=== PATIENT | male | born 1950 | race Caucasian/White ===

== ENCOUNTER 2017-04-15 09:27 | Inpatient (IN) | payer MEDICARE, OTHER ==
[~2017-04-15] VITALS: Ht 188 cm; Wt 111.6 kg
--- NOTE | ~2017-04-15 | PROC ---
[facility] [address] [place] [address] PROCEDURE REPORT Name: PORTIA GARG Room: [address] IN .R.#: [id number] Admission: 04/15/17 Attend Phys: Sharonda Sood Discharge: Date of : 54 Report #: [id number] THIS REPORT FOR: //name// For GI report, please see the Provation report in Perceptive 7 content. By: [facility] Records Staff KASANDRA /SUSAN
[~2017-04-15 09:27] MED LIST: ASPIR 8181 MG PO; CARDIZEM CD180 MG PO; CENTRUM SILVER1 EAC2 PO; KLOR-CON 1010 MEQ PO; LISINOPRIL-HCT1 EAC2 PO; LOPRESSOR25 PO; NORVASC5 MG PO; PACERONE 200 M200 M1 PO; XARELTO10 MG PO
[2017-04-15 09:35] VITALS: BP 142/58
[2017-04-15] MEDS ORDERED: CARVEDILOL6.25 MG (09:40)
[2017-04-15 10:07] LABS: MCH 24.1 pg (26.0-34.0); MCHC 30.8 g/dL (28.0-37.0); MPV 8.6 fl. (7.2-11.1); NUCLEATED RBCS 0 /100WBC; PLATELET COUNT* 72 thou/uL (150-400); RBC 1.99 mil/uL (4.50-6.00)
[2017-04-15 10:16] LABS: ANION GAP 9 mmol/L (7-16); APTT 33.6 Seconds (25.0-31.3); BUN 12 mg/dL (7-18); CALCIUM 8.1 mg/dL (8.5-10.1); CHLORIDE 105 mmol/L (98-107); CO2 25 mmol/L (21-32); CREATININE 0.9 mg/dL (0.6-1.3); GLUCOSE 123 mg/dL (70-99); INR 1.5; POTASSIUM 3.4 mmol/L (3.5-5.1); SODIUM 139 mmol/L (136-145)
[2017-04-15 10:19] LABS: HEMOGLOBIN 4.8 gm/dL (14.0-18.0); WBC 1.7 thou/uL (4.0-11.0)
[2017-04-15 10:20] LABS: HEMATOCRIT 15.5 % (42.0-52.0)
[2017-04-15 10:26] LABS: ALBUMIN 2.4 g/dL (3.4-5.0); ALKALINE PHOSPHATASE 107 U/L (46-116); NT-PRO BRAIN NAT PEPTIDE 95 pg/mL (<300); SGOT 64 U/L (15-37); SGPT 46 U/L (30-65); TOTAL BILIRUBIN 1.3 mg/dL (<0.1-1.0); TOTAL PROTEIN 6.8 g/dL (6.4-8.2); TROPONIN-I LEVEL <0.06 ng/mL (<0.06)
[2017-04-15 11:08] LABS: ABSOLUTE BASOPHILS 0.1 thou/uL (0.0-0.2); ABSOLUTE EOSINOPHILS 0.1 thou/uL (0.0-0.7); ABSOLUTE LYMPHOCYTES 0.4 thou/uL (0.8-5.3); ABSOLUTE MONOCYTES 0.2 thou/uL (0.0-1.2); ANISOCYTOSIS 2+; ATYPICAL LYMPHS 8 %; HYPOCHROMASIA 2+; MICROCYTES 2+; OVALOCYTES 1+; POIKILOCYTOSIS 1+; POLYCHROMASIA 1+
[2017-04-15 11:09] LABS: PLATELET ESTIMATE DECREASED; TEARDROPS 1+
[2017-04-15 12:25] VITALS: BP 108/56
[2017-04-15 12:30] VITALS: BP 128/82
--- NOTE | 2017-04-15 13:00 | NUR ---
ER ADMIT TO ROOM 232 VIA CART. ADMISSION ASSESSMENT COMPLETE, DEFER TO COMPUTER CHARTING. JUVENILE DETENTION OFFICER PLACED TRACKING SR. ALERT ORIENTED, DENIES PAIN, DIZZINESS OR ANY DISCOMFORT. ROOM AIR, LUNGS CLEAR. 2+ EDEMA IN LOWER EXTREMITIES. EDUCATED ON BLOOD PRODUCTS, ORDER FOR TRANSFUSION AND CONSENT - CONSENT SIGNED AND PLACED ON FRONT OF CHART. ORIENTED TO ROOM/CALL LIGHT AND PLAN OF CARE, VERBALIZED UNDERSTANDING. WILL MONITOR.
[2017-04-15 14:25] VITALS: BP 120/70; BP 123/71; BP 140/72; BP 145/76
[2017-04-15 17:00] VITALS: BP 123/71; BP 126/73; BP 129/72; BP 133/73; BP 134/80; BP 148/84
--- NOTE | 2017-04-15 18:36 | NUR ---
HOT WATER HEATER INSTALLER TRACKING WITH NO CHANGE IN RHYTHM. IV INFUSING, 2ND UNIT OF PRBC INFUSING. CONTINUES TO DENY PAIN, NAUSEA OR ANY DISCOMFORT. FAMILY AT BEDSIDE VISITING. CALL LIGHT WITHIN REACH. WILL MONITOR.
[2017-04-15 20:00] VITALS: BP 126/73
[2017-04-15 23:24] LABS: MCH 25.5 pg (26.0-34.0); MCHC 32.2 g/dL (28.0-37.0); MCV 79.1 fL (80.0-100.0); MPV 8.5 fl. (7.2-11.1); RBC 2.33 mil/uL (4.50-6.00); RDW-CV 17.5 % (10.5-14.5); WBC 2.6 thou/uL (4.0-11.0)
[2017-04-15 23:25] LABS: HEMATOCRIT 18.5 % (42.0-52.0)
[2017-04-15 23:27] LABS: HEMOGLOBIN 5.9 gm/dL (14.0-18.0)
[2017-04-16] VITALS (12 sets, daily range): BP systolic 124–143; BP diastolic 63–87
--- NOTE | 2017-04-16 03:26 | NUR ---
PT ALERT ORIENTED. 2 UNIT PRBC INFUSING AT SHIFT CHG. CBC ORDERED AT 2330. H&H 5.9/18.5. DR ARIZA NOTIFIED. ORDERS RECIEVED FOR TWO UNITS PRBC. 3RD UNIT INFUSING NOW. OCTREOTIDE INFUSING AT 50MLD/HR. TELEMETRY SHOWS SR. VSS. WILLL CONTINUE TO MONITOR.
[2017-04-16 05:36] LABS: ABSOLUTE EOSINOPHILS 0.1 thou/uL (0.0-0.7); ABSOLUTE LYMPHOCYTES 0.4 thou/uL (0.8-5.3); ABSOLUTE MONOCYTES 0.4 thou/uL (0.0-1.2); ABSOLUTE NEUTROPHILS 1.7 thou/uL (1.6-8.1); BASOPHILS 0.8 %; EOSINOPHILS 4.3 %; HEMATOCRIT 20.5 % (42.0-52.0); LYMPHOCYTES 16.1 %; MCH 25.6 pg (26.0-34.0); MCHC 32.4 g/dL (28.0-37.0); MCV 79.1 fL (80.0-100.0); MONOCYTES 14.1 %; MPV 9.3 fl. (7.2-11.1); NUCLEATED RBCS 0 /100WBC; PLATELET COUNT* 75 thou/uL (150-400); POLYS 64.7 %; RDW-CV 17.3 % (10.5-14.5); WBC 2.6 thou/uL (4.0-11.0)
[2017-04-16 05:39] LABS: INR 1.4; PROTIME 13.7 Seconds (9.20-11.50)
[2017-04-16 06:04] LABS: CALCIUM 8.1 mg/dL (8.5-10.1)
[2017-04-16 06:16] LABS: HEMOGLOBIN 6.7 gm/dL (14.0-18.0)
[2017-04-16 09:37] LABS: HEMATOCRIT 21.4 % (42.0-52.0); HEMOGLOBIN 7.1 gm/dL (14.0-18.0)
--- NOTE | 2017-04-16 10:13 | NUR ---
ASSUMED CARE OF PT THIS AM AROUND 0715- CARDAIC MONITOR IN PLACE ORDERED, TRACING SR- UPON ASSESSMENT PT NOTED TO BE RESTING IN BED- PT A&O X4- CONTINENT OF BOWEL AND BLADDER- SBA WITH TRANSFERS- LCTA, DIMISHED IN BASES- VSS, O2 SAT 92% ON RA-ABDOMEN SOFT/ROUND/NON-TENDER, BS X4 QUADS- REPORTS BM OVERNIGHT- 2-3+ BLE EDEMA, NON-PITTING- BLOOD COMPLETED THIS AM AROUND 0830- H&H POST INFUSION NOTED TO BE 7.1- NOTIFIED OF EDEMA, CURRENT H&H, ADN IVF INFUSING WITH NOTED EDEMA- ORDERS RECIVED TO CANCEL ORDERED BLOOD FOR THIS AM, AND IVF D/C'D- IV NOTED TO LEFT AC INTACT AND SL AT THIS TIME- IV NOTED TO RIGHT AC INTACT WITH OCTREOTIDE INFUSING ORDERED- PT CURRENTLY NPO FOR SCHEDULED EGD THIS SHIFT- PT DENIES ANY C/O PAIN/DISCOMFORT AT THIS TIME- CALL LIGHT AND PERSONAL BELONGINGS WITH IN REACH- HOURLY ROUNDS IN PLACE R/T SAFETY/NEEDS- ALL NEEDS MET AT THIS TIME-[facility]
--- NOTE | 2017-04-16 11:48 | EKG ---
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 <ELECTRONICALLY SIGNED> By: Dano Son MD, FACC 04/16/17 1147 1005 1005 Dano Son MD, FAC /EPI
--- NOTE | 2017-04-16 18:44 | NUR ---
PT CURRENLTY RESTING IN BED, AT SIDE VISITING- CARDAIC MONITOR IN PLACE ORDERED, TRACING SR- IV TO LEFT AC INTACT AND SL, IV TO RIGHT AC INTACT WITH IV OCTREOTIDE INFUSING ORDERED- PT DOWN FOR EGD THIS SHIFT FROM ABOUT 1150 TO 1409- VS UPON RETURNING NOTED AT 98.0 18 143/63 63 91% ON RA- PT REPORTED TO HAVE HAD GRADE 3 ESOPHAGEAL VARICES WITH 7 BANDS PLACED OVER 4 DIFF VARICES- MILD PORTAL HTN NOTED AND MILD GAVE-CARDIO CONSULTED FOR RECOMMENDATIONS PER FOR COREG TO BE CHANGED FROM COREG TO PROPRANOLOL- NOTIFIED AND GAVE TO FOR OKAY TO SWITH TO PROPRANOLOL 50MG DAILY, RB AND VERIFIED WITH PHYSICIAN- 2 GRAM SODIUM DIET INTIATED- POOR PO INAKE NOTED- PT NOTED TO BE NAUSEAS WITH VOMITTING NOTED X2 THIS EVENING POST TRYING TO EAT X1 AND WITH MEDICATION ADMINISTRATION- ORDERS OBTAINED FOR ANTI-NAUSEA MEDICATION- ZOFRAN GIVEN AT 1700 POST FIRST EMESIS- PT NOTED TO BECOME NAUSEA WITH EMESIS X1 WITH FEELLINGS OF FEELING BLOATED, PRN PROMETHAZINE GIVEN AT 1737-PT CURRENLTY RESTING IN BED WITH EYES CLOSED- CALL LIGHT AND PERSONAL BELONGINGS WITH IN REACH- HOURLY ROUNDS IN PLACE R/T SAFETY/NEEDS- ALL NEEDS MET AT THIS TIME-[facility]
[2017-04-16 20:38] LABS: HEMATOCRIT 26.1 % (42.0-52.0); HEMOGLOBIN 8.5 gm/dL (14.0-18.0); MCH 26.4 pg (26.0-34.0); MCHC 32.5 g/dL (28.0-37.0); MCV 81.1 fL (80.0-100.0); MPV 8.7 fl. (7.2-11.1); NUCLEATED RBCS 0 /100WBC; PLATELET COUNT* 76 thou/uL (150-400); RBC 3.22 mil/uL (4.50-6.00); RDW-CV 17.2 % (10.5-14.5); WBC 5.9 thou/uL (4.0-11.0)
[2017-04-16 20:45] LABS: CALCIUM 8.2 mg/dL (8.5-10.1); POTASSIUM 3.8 mmol/L (3.5-5.1)
[2017-04-16 20:50] LABS: ALBUMIN 2.5 g/dL (3.4-5.0); TOTAL BILIRUBIN 3.4 mg/dL (<0.1-1.0); TOTAL PROTEIN 7.2 g/dL (6.4-8.2)
[2017-04-16 21:18] LABS: ABSOLUTE EOSINOPHILS 0.1 thou/uL (0.0-0.7); ABSOLUTE LYMPHOCYTES 0.3 thou/uL (0.8-5.3); ABSOLUTE MONOCYTES 0.5 thou/uL (0.0-1.2); ABSOLUTE NEUTROPHILS 5.1 thou/uL (1.6-8.1)
[2017-04-16 21:19] LABS: ANISOCYTOSIS 1+; PLATELET ESTIMATE DECREASED
[2017-04-16 21:20] LABS: POLYCHROMASIA 1+
--- NOTE | 2017-04-16 22:51 | NUR ---
at 1945 this nurse spoke to dr camargo about pts current condition, pt has nausea unresolved with antiemetics and pts abd is distended, labs ordered, at [address] lab results reported to dr camargo, this nurse instructed to continue to medicate pt for nausea/vomiting and order a clear liquid diet for this patient, pts updated via telephone on pts condition and this nurse's communication with physician
[2017-04-17] VITALS (7 sets, daily range): BP systolic 109–131; BP diastolic 58–77
[2017-04-17 04:43] LABS: ABSOLUTE LYMPHOCYTES 0.4 thou/uL (0.8-5.3); ABSOLUTE MONOCYTES 0.8 thou/uL (0.0-1.2); ABSOLUTE NEUTROPHILS 6.7 thou/uL (1.6-8.1); BASOPHILS 0.5 %; EOSINOPHILS 0.3 %; HEMATOCRIT 26.5 % (42.0-52.0); HEMOGLOBIN 8.8 gm/dL (14.0-18.0); LYMPHOCYTES 5.1 %; MCH 26.4 pg (26.0-34.0); MCHC 33.2 g/dL (28.0-37.0); MCV 79.5 fL (80.0-100.0); MONOCYTES 10.2 %; MPV 9.2 fl. (7.2-11.1); NUCLEATED RBCS 0 /100WBC; PLATELET COUNT* 91 thou/uL (150-400); POLYS 83.9 %; RBC 3.33 mil/uL (4.50-6.00); RDW-CV 17.5 % (10.5-14.5)
[2017-04-17 04:57] LABS: INR 1.4; PROTIME 13.4 Seconds (9.20-11.50)
[2017-04-17 05:25] LABS: ALBUMIN 2.4 g/dL (3.4-5.0); CREATININE 1.1 mg/dL (0.6-1.3); TOTAL BILIRUBIN 2.9 mg/dL (<0.1-1.0); TOTAL PROTEIN 6.6 g/dL (6.4-8.2)
--- NOTE | 2017-04-17 10:37 | NUR ---
VSS, ASSUMED CARE IN THE AM, ASSESSMENT PERFORMED AND CHARTED, FALL PRECAUTIONS IN PLACE AND CALL LIGHT IN REACH, PT IS A&O4 AND ON 2L NC, UP AD SAMUEL, TRACING SR ON THE MONITOR AMD DENIES ANY PAIN AT THIS TIME. PT ABDOMINE IS DISTENDED ROUND AND HARD, HE HAS BEEN FEELING NUASEA NUT STATES FEELING BETTER AT THIS TIME, PT GOAL IS TO SIT UP IN CHAIR AND WALK IN ROOM, WILL FOLLOW WITH PLAN OF CARE,
--- NOTE | 2017-04-17 15:30 | NUR ---
MET WITH PT TO DISCUSS HOME SITUATION/DC PLANNING. PT LIVES WITH . IS INDEPENDENT AND ACTIVE. USES NO EQUIPMENT OR HOME CARE. PT PLANS TO RETURN HOME AT DC. WILL FOLLOW
--- NOTE | 2017-04-17 18:49 | NUR ---
VSS, PT IS PROGRESSING TOWARDS GOAL, PT HAS HAS NO N/V AND ON TA AND UP AD SAMUEL, HE HAS PROGRESSED TO REGULAR DIET, PT IS TRACING SR ON THE MONITOR AND DENIES ANY PAIN, HOURLY ROUNDS COMPLETED,
--- NOTE | 2017-04-18 02:46 | NUR ---
PT ALERT ORIENTED. UP AD SAMUEL. BREATH SOUNDS CLEAR. ON RA. ABD DISTENDED. PT STATED HE HAD GAS. CLEAR SODA GIVEN. PRN SIMETHICONE ORDER OBTAINED BUT PT STATED THE POP WORKED. TELEMETRY SHOWS SR 50S. WILL CONTINUE TO MONITOR.
[2017-04-18 03:38] VITALS: BP 114/72
[2017-04-18 05:09] LABS: ABSOLUTE EOSINOPHILS 0.3 thou/uL (0.0-0.7); ABSOLUTE LYMPHOCYTES 1.1 thou/uL (0.8-5.3); ABSOLUTE MONOCYTES 0.8 thou/uL (0.0-1.2); ABSOLUTE NEUTROPHILS 2.6 thou/uL (1.6-8.1); BASOPHILS 0.8 %; EOSINOPHILS 5.4 %; HEMATOCRIT 25.1 % (42.0-52.0); LYMPHOCYTES 22.9 %; MCH 25.9 pg (26.0-34.0); MONOCYTES 16.9 %; MPV 8.8 fl. (7.2-11.1); NUCLEATED RBCS 0 /100WBC; PLATELET COUNT* 92 thou/uL (150-400); RBC 3.09 mil/uL (4.50-6.00); RDW-CV 17.9 % (10.5-14.5); WBC 4.9 thou/uL (4.0-11.0)
[2017-04-18 05:11] LABS: CREATININE 1.2 mg/dL (0.6-1.3); POTASSIUM 3.7 mmol/L (3.5-5.1)
[2017-04-18 08:00] VITALS: BP 134/78
--- NOTE | 2017-04-18 11:20 | NUR ---
ASSUMED CARE OF PT AT 0730. PT RESTING IN BED WAITING FOR BREAKFAST. PT A&0X4. DENIES ANY PAIN AT THIS TIME. PT TRACING SB ON THE REFUSE COLLECTOR. EDEMA NOTED TO BILATERAL ANKLES AND FEET. ON RA SAT 88%. PT PLACED ON 2L NC SAT UP TO 92-93%. PT DENIES ANY SHORTNESS OF BREATH. PT STATES HE HAD A LIQUID BOWEL MOVEMENT LAST NIGHT AFTER DINNER AND HAD SOME NAUSEA AFTER DINNER WELL. PT ABDOMEN NOTED TO BE DISTENDED AND HARD. PT UP AD SAMUEL IN ROOM. PT HGB NOTED TO DROP FROM 8.8 TO 8.0 TODAY. WILL MONITOR PT FOR STOOLS AND WILL ATTEMPT TO TITRATE PT OFF 02 THROUGHOUT SHIFT. AM ASSESSMENT CHARTED. MEDICATIONS PER MAY. PT REPOSITIONS SELF IN BED WITH REMINDERS. HOURLY ROUNDING OBSERVED. BED IN LOW POSITION. CALL LIGHT WITHIN REACH. WILL CONTINUE PLAN OF CARE.
[2017-04-18 12:13] VITALS: BP 109/73
[2017-04-18 17:01] VITALS: BP 137/78
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
--- NOTE | 2017-04-18 18:31 | NUR ---
NO ACUTE CHANGES THROUGHOUT SHIFT. REFER TO CHARTING. PLAN IS FOR DISCHARGE HOME TOMORROW IF HGB REMAINS STABLE AND DOESNT CONTINUE TO DROP. PT DENIES ANY STOOLS TODAY. PT ABLE TO TITRATE OFF OXYGEN AND IS CURRENTLY ON RA SAT 93%. DENIES ANY SHORTNESS OF BREATH. CONTINUES TO TRACE SB/SR ON THE SERVICE DELIVERY MANAGEMENT CONSULTANT. PT UP AD SAMUEL IN ROOM. VISITORS AT BEDSIDE THIS AFTERNOON. MEDICATIONS PER MAY. PT REPOSITIONS SELF. HOURLY ROUNDING OBSERVED. BED IN LOW POSITION. CALL LIGHT WITHIN REACH. WILL CONTINUE PLAN OF CARE.
[2017-04-18 20:00] VITALS: BP 120/69
[2017-04-19] VITALS: BP 110/69
--- NOTE | 2017-04-19 03:28 | NUR ---
PT ALERT ORIENTED. ABD DISTENDED. SPRITE AND SIMETICONE GIVEN. TELEMETRY SHOW SHOWS SR. DENIES PAIN. WILL CONTINUE TO MONITOR.
[2017-04-19 04:00] VITALS: BP 112/64
[2017-04-19 05:22] LABS: ABSOLUTE EOSINOPHILS 0.3 thou/uL (0.0-0.7); ABSOLUTE LYMPHOCYTES 0.8 thou/uL (0.8-5.3); ABSOLUTE MONOCYTES 0.6 thou/uL (0.0-1.2); ABSOLUTE NEUTROPHILS 2.1 thou/uL (1.6-8.1); BASOPHILS 0.6 %; EOSINOPHILS 6.6 %; HEMATOCRIT 22.7 % (42.0-52.0); HEMOGLOBIN 7.4 gm/dL (14.0-18.0); LYMPHOCYTES 21.8 %; MCH 26.5 pg (26.0-34.0); MCHC 32.7 g/dL (28.0-37.0); MCV 81.1 fL (80.0-100.0); MONOCYTES 16.4 %; MPV 8.8 fl. (7.2-11.1); NUCLEATED RBCS 0 /100WBC; PLATELET COUNT* 81 thou/uL (150-400); POLYS 54.6 %; RDW-CV 18.1 % (10.5-14.5); WBC 3.9 thou/uL (4.0-11.0)
--- NOTE | 2017-04-19 06:34 | NUR ---
AM H&H 7.4/22.7 DOWN FROM YESTERDAY 8.0/25.1 DR BUCKNER NOTIFIED VIA YOU CALL .
[2017-04-19 08:00] VITALS: BP 133/73
[2017-04-19 10:11] LABS: HCV QUANT BY PCR HCV Not Detected IU/mL (())
--- NOTE | 2017-04-19 11:38 | NUR ---
pt reports feeling better this am and has an appetite for first time in days. pt denies c/o. pt sitting up in bed, visitor at bedside. pt denies any needs.
[2017-04-19 12:00] VITALS: BP 119/74
[2017-04-19 15:16] LABS: HEMATOCRIT 26.2 % (42.0-52.0); HEMOGLOBIN 8.5 gm/dL (14.0-18.0)
[2017-04-19 16:00] VITALS: BP 122/75
--- NOTE | 2017-04-19 19:42 | NUR ---
PT DENIES C/O TODAY. PT TOLERATED DIET. NO S/S BLEEDING.
[2017-04-19 20:00] VITALS: BP 126/67
[2017-04-20] VITALS (7 sets, daily range): BP systolic 103–138; BP diastolic 59–78
--- NOTE | 2017-04-20 05:44 | NUR ---
ASSUMED CARE AROUND 1930. PT A/OX4 AND PLEASANT, RESTING SOME TONIGHT. TELE MONITOR TRACING SR/SB WITH 1D AVB. ON ROOM AIR. IV'S SALINE LOCKED. UP AD SAMUEL. PT REPORTS HAVING HEMORRHOIDS BUT NO OTHER PAIN. VSS. SEE CHARTING. NO CONCERNS VOICED. CALL LIGHT IN REACH, WILL CONTINUE WITH PLAN OF CARE.
[2017-04-20 06:36] LABS: HEMATOCRIT 23.1 % (42.0-52.0); HEMOGLOBIN 7.4 gm/dL (14.0-18.0); MCH 26.6 pg (26.0-34.0); MCHC 32.2 g/dL (28.0-37.0); MCV 82.5 fL (80.0-100.0); MPV 8.7 fl. (7.2-11.1); RBC 2.8 mil/uL (4.50-6.00); RDW-CV 18.2 % (10.5-14.5); WBC 2.9 thou/uL (4.0-11.0)
[2017-04-20 07:20] LABS: CALCIUM 7.6 mg/dL (8.5-10.1); POTASSIUM 3.2 mmol/L (3.5-5.1); TOTAL BILIRUBIN 1.8 mg/dL (<0.1-1.0); TOTAL PROTEIN 5.7 g/dL (6.4-8.2)
[2017-04-20] MEDS ORDERED: IRON325 PO ×2 (14:01→16:00)
[2017-04-20] MEDS ORDERED: PROTONIX40 M1 PO ×2 (14:02→16:00)
[2017-04-20] MEDS ORDERED: CARAFATE 1 GM TA1 G1 PO ×2 (14:03→16:00)
[2017-04-20] MEDS ORDERED: ALDACTONE50 MG PO (14:04)
[2017-04-20] MEDS ORDERED: PROPRANOLOL 1010 MG PO (14:05)
[2017-04-20] MEDS ORDERED: LASIX 40 MG TAB40 M2 PO ×2 (14:06→16:00)
[2017-04-20] MEDS ORDERED: XIFAXAN550 M1 PO (16:00)
[2017-04-20] MEDS ORDERED: INDERAL 20 MG T20 M1 PO (16:00)
[2017-04-20] MEDS ORDERED: ALDACTONE25 MG PO (16:00)
--- NOTE | 2017-04-20 17:47 | NUR ---
pt has no c/o today.
--- NOTE | 2017-04-20 20:00 | NUR ---
RECEIVED REPORT AND ASSUMED CARE OF PT, ASSESSMENT COMPLETED. PT DENIES LIGHTHEADNESS OR DIZZINESS. INDEPENDENT BRP WITH STEADY GAIT. PT STATES HAD BM EARLIER TODAY WITH BRIGHT RED BLEEDING DUE TO HEMORRHOIDS. TELEMETRY ON SHOWING SR. WILL CONT TO MONITOR AND ASSIST NEEDED.
[2017-04-21 00:02] VITALS: BP 102/48
[2017-04-21 04:00] VITALS: BP 126/74
--- NOTE | 2017-04-21 06:06 | NUR ---
SLEPT WELL TONIGHT. NO COMPLAINTS VOICED. ASSESSMENT UNCHANGED. TELEMETRY CONT TO SHOW SR. ADVANCING TOWARDS DISCHARGE GOAL. HOURLY ROUNDING OBSERVED.
[2017-04-21 07:30] VITALS: BP 119/73
--- NOTE | 2017-04-21 12:29 | NUR ---
CONTINUE TO FOLLOW. MET WITH PT AND . PT HOPEFUL TO GO HOME AND DENIES NEEDS
[2017-04-21 12:30] VITALS: BP 128/75
[2017-04-21 12:44] LABS: HEMATOCRIT 25.4 % (42.0-52.0); HEMOGLOBIN 8.2 gm/dL (14.0-18.0); MCH 26.7 pg (26.0-34.0); MCHC 32.4 g/dL (28.0-37.0); MCV 82.6 fL (80.0-100.0); MPV 8.4 fl. (7.2-11.1); RBC 3.07 mil/uL (4.50-6.00); RDW-CV 19.6 % (10.5-14.5); WBC 3.2 thou/uL (4.0-11.0)
[2017-04-21 12:49] LABS: CALCIUM 7.9 mg/dL (8.5-10.1); POTASSIUM 3.9 mmol/L (3.5-5.1)
[2017-04-21 12:54] LABS: ALBUMIN 2.2 g/dL (3.4-5.0); TOTAL BILIRUBIN 1.6 mg/dL (<0.1-1.0); TOTAL PROTEIN 6.3 g/dL (6.4-8.2)
--- NOTE | 2017-04-21 13:47 | NUR ---
RECEIVED PT CARE 0700. PT IS ALERT AND ORIENTED X4. VSS. SALESPERSON MEN'S AND BOYS' CLOTHING TRACING SR. PATIENT DENIES PAIN. NO SOA. O2 SAT 94% ON ROOM AIR. UP AD SAMUEL IN ROOM. GAIT IS STEADY. AM ASSESSMENT CHARTED. MEDS PER MAR. PLANNING FOR DC TO HOME TODAY. LAB WORK IMPROVING. WILL CONTINUE PLAN OF CARE.
[2017-04-21] MEDS ORDERED: CARVEDILOL6.25 MG (15:01)
[2017-04-21] MEDS ORDERED: CENTRUM SILVER1 EAC2 PO (15:02)
[2017-04-21] MEDS ORDERED: PROTONIX40 M1 PO (15:07)
[2017-04-21] MEDS ORDERED: CARAFATE 1 GM TA1 G1 PO (15:17)
[2017-04-21] MEDS ORDERED: XIFAXAN550 M1 PO (15:19)
--- NOTE | 2017-04-21 16:43 | NUR ---
RECEIVED DISCHARGE ORDERS PER DR ARIZA. IV DISCONTINUED. RESIDENT IN DIAGNOSTIC RADIOLOGY REMOVED AND RETURNE TO NURSE'S DESK. NOTED SOME CONCERNS WITH THE CHECK MARKED DISCHARGE MEDICATIONS TO CONTINUE AFTER DISCHARGE AND THE PATIENTS PREVIOUS HOME MEDICATIONS. NOTIFIED CARDIOLOGY AND SPOKE WITH CARDIOLOGY NURSE CASSI. AFTER REVIEWING DR CABRAL'S PROGRESS NOTE PER CASSI IT WAS DECEIFERED THE PATIENT NEEDED TO STOP AMIODARONE DUE TO HIS LIVER CIRRHOSIS, STOP CARVEDILOL, AND STOP XARELTO. PATIENT WAS TO TAKE PROPRANOLOL AFTER DC AND WAS GIVEN A SCRIPT AT DISCHARGE. ADDITIONAL MEDICATION SCRIPTS GIVEN AND MEDICATION INFORMATION SHEETS. EDUCATED ON F/U WITH HIS PRIMARY, F/U WITH GI, AND F/U WITH AN ALREADY SCHEDULED GI APPT WITH DR BENJAMIN. PATIENT WAS ALSO VERBALLY INSTRUCTED TO F/U WITH CARDIOLOGY WELL. PATIENT WAS OFFERED HOME HEALTH AND PT/OT AFTER DISCHARGE BUT PATIENT REFUSED AND STATED HE WAS SELF SUFFICIENT AT HOME. HE DENIED ANY NEEDS/CONCERNS OR ANY QUESTIONS AT DISCHARGE. ALL BELONGINGS PACKED AND LEAVING WITH PATIENT. LEAVING VIA WHEELCHAIR ACCOMPANIED BY NURSING STAFF AND PATIENTS SPOUSE.
--- NOTE | 2017-05-08 17:57 | CON ---
[address] [address] CONSULTATION Name: PORTIA GARG Room: [address] IN M.R.#: [id number] Admission: 04/15/17 Attend Phys: Sharonda Sood Discharge: 04/21/17 Date of : 54 Report #: [id number] THIS REPORT FOR: //name// CC: Ramone Burch DO DATE OF SERVICE: 04/15/2017 REFERRING PHYSICIAN: Lionel Burch DO REASON FOR CONSULTATION: Anemia. IMPRESSION: 1. Acute anemia with history of melena - evaluate upper gastrointestinal tract first due to a history of esophageal varices. 2. Decompensated liver disease secondary to hepatitis C, with associated ascites and peripheral edema and now possibly variceal bleeding. 3. Pancytopenia, likely related to portal hypertension. 4. Chronic atrial fibrillation, requiring chronic Xarelto. RECOMMENDATIONS: 1. We will begin the patient on octreotide drip as well as Protonix drip for suspected upper GI bleed. 2. We will proceed with upper endoscopy tomorrow to be done at 12:45 or so. 3. Continue to hold Xarelto for now. He may not be a candidate for any type of anticoagulation if he has significant portal hypertension and requires variceal banding. 4. We will hold off on endoscopy of his lower GI tract unless his upper endoscopy is unrevealing. 5. We will keep Dr. Singh in the loop with regards to the same to update with regards to this patient's care as the patient has an outpatient appointment to see him in the next month or so later this month. 6. We will check quantitative HCV RNA by PCR, alpha fetoprotein and abdominal ultrasound with Doppler since he has decompensated liver disease. I have discussed the plans with the patient as well his family and everyone is in agreement with the same. HISTORY OF PRESENT ILLNESS: The patient is a very pleasant 67-year-old white male with history of chronic hepatitis C infection, which was treated and cured by Dr. Singh. He is scheduled to see him sometime later this week, but have been having problems with rather severe fatigue and dark tarry stools. He has not been feeling good for quite some time. He [place] [address] CONSULTATION Name: PORTIA GARG Kirill Room: [address]#: [id number] Admission: 04/15/17 Attend Phys: Sharonda Sood Discharge: 04/21/17 Date of : 54 Report #: [id number] dizziness. He has no complaints of any dysphagia, odynophagia, chronic reflux or postprandial pain. He has had no problem with his bowels or bowel frequency other than being black and tarry. He is on chronic Xarelto for chronic atrial fibrillation. He is followed by Dr. Dalton for the same. He is admitted to hospital for further evaluation and treatment. ALLERGIES: None. MEDICATIONS: Include lisinopril/hydrochlorothiazide, aspirin, Xarelto, potassium, amiodarone, carvedilol and a multivitamin. PAST MEDICAL HISTORY: Remarkable for hypertension; chronic atrial fibrillation and history of hepatitis C with probable cirrhosis, for which he was treated for the same. SOCIAL HISTORY: The patient is . Does not smoke or drink. FAMILY HISTORY: Negative. PHYSICAL EXAMINATION: GENERAL: Reveals a pleasant 67-year-old gentleman who is awake and alert. CARDIOPULMONARY: Revealed a regular rate and rhythm. LUNGS: Clear. He is not tachycardic or ill appearing. ABDOMEN: Soft. It was mildly distended. No rebound or guarding noted. LABORATORY TEST: On admission revealed a white count of 1.7; hemoglobin 4.8 and platelet count of 72,000. His MCV is 78 and RDW is 18.0. His differential is normal. His protime 15.0 with an INR of 1.5 and a PTT of 30.6. Sodium 139, potassium 3.4, chloride 105 and bicarb is 25. BUN is 12 and creatinine 0.9. His GFR is 85. Total bilirubin 1.3. Alkaline phosphatase is 107, AST 64 and ALT 46. Albumin is 2.4. His ferritin is only 8. Stool is positive for blood. By comparison, the patient's blood count in 04/2016 revealed a white count 9.5; hemoglobin 17.2 and platelet count 135,000. Protime is 13.2 with an INR of 1.3 and a PTT of 30.4. His electrolytes were all within normal limits at that time with the BUN and creatinine of 17 and 1.1 respectively and GFR of 67. Total bilirubin at that time was 0.8. Alkaline phosphatase 97, AST 96 and ALT 164. DISCUSSION: At the present time, the patient has some black tarry stools secondary to associated anemia. We will proceed with upper endoscopy first and make further recommendations thereafter. I have discussed the plan with the [address] [address] CONSULTATION Name: PORTIA GARG Room: [address] IN .R.#: [id number] Admission: 04/15/17 Attend Phys: Sharonda Sood Discharge: 04/21/17 Date of : 54 Report #: [id number] patient as well as with his and family and everyone is in agreement with the same. <ELECTRONICALLY SIGNED> By: Moiz Mcdonald DO 05/08/17 1757 1634 [id number] Mcdonald DO /nt
== END 2017-04-21 16:50 | disposition home or self-care (01) | DRG 432 ==
LOC: M.ERS 09:27 → M.TBA-ER 10:34 → M.2W 10:34
PROVIDERS: Family Medicine; Internal Medicine Gastroenterology; Nurse Practitioner Adult Health; ADMIT Internal Medicine
PROC: 30233N1 Transfusion of Nonautologous Red Blood Cells into Peripheral Vein, Percutaneous Approach (ICD-10-PCS; 2017-04-15)
PROC: 06L38CZ Occlusion of Esophageal Vein with Extraluminal Device, Via Natural or Artificial Opening Endoscopic (ICD-10-PCS; principal; 2017-04-16)
DX: K74.60 Unspecified cirrhosis of liver (principal); I85.11 Secondary esophageal varices with bleeding; E43 Unspecified severe protein-calorie malnutrition; K31.811 Angiodysplasia of stomach and duodenum with bleeding; D61.818 Other pancytopenia; K76.6 Portal hypertension; R18.8 Other ascites; K72.90 Hepatic failure, unspecified without coma; I10 Essential (primary) hypertension; E87.6 Hypokalemia; I48.2 Chronic atrial fibrillation; E83.51 Hypocalcemia; K31.89 Other diseases of stomach and duodenum; K64.8 Other hemorrhoids; K64.4 Residual hemorrhoidal skin tags; Z86.19 Personal history of other infectious and parasitic diseases; Z82.49 Family history of ischemic heart disease and other diseases of the circulatory system; Z79.01 Long term (current) use of anticoagulants; Z79.82 Long term (current) use of aspirin; Z87.891 Personal history of nicotine dependence; Z68.31 Body mass index [BMI] 31.0-31.9, adult

== ENCOUNTER 2017-05-06 11:51 | Emergency (ER) | payer MEDICARE, OTHER ==
[~2017-05-06] VITALS: Ht 188 cm; Wt 91.6 kg
[~2017-05-06 11:51] MED LIST changes: +ALDACTONE25 MG PO; +ALDACTONE50 MG PO; +CARAFATE 1 GM TA1 G1 PO; +CARVEDILOL6.25 MG; +INDERAL 20 MG T20 M1 PO; +IRON325 PO; +LASIX 40 MG TAB40 M2 PO; +PROPRANOLOL 1010 MG PO; +PROTONIX40 M1 PO; +XIFAXAN550 M1 PO
[2017-05-06] MEDS ORDERED: XIFAXAN550 MG PO (12:05)
[2017-05-06 12:37] LABS: HEMATOCRIT 32.7 % (42.0-52.0); HEMOGLOBIN 10.5 gm/dL (14.0-18.0); MCH 27.2 pg (26.0-34.0); MCHC 32.2 g/dL (28.0-37.0); MCV 84.5 fL (80.0-100.0); MPV 9.3 fl. (7.2-11.1); NUCLEATED RBCS 0 /100WBC; PLATELET COUNT* 99 thou/uL (150-400); RBC 3.87 mil/uL (4.50-6.00); RDW-CV 25.2 % (10.5-14.5); WBC 6.7 thou/uL (4.0-11.0)
[2017-05-06 12:44] LABS: APTT 29.2 Seconds (25.0-31.3); INR 1.3; PROTIME 12.7 Seconds (9.20-11.50)
[2017-05-06 12:55] LABS: CALCIUM 10.1 mg/dL (8.5-10.1); CREATININE 1.2 mg/dL (0.6-1.3); POTASSIUM 4.7 mmol/L (3.5-5.1)
[2017-05-06 13:01] LABS: ABSOLUTE EOSINOPHILS 0.2 thou/uL (0.0-0.7); ABSOLUTE LYMPHOCYTES 0.6 thou/uL (0.8-5.3); ABSOLUTE MONOCYTES 0.3 thou/uL (0.0-1.2); ABSOLUTE NEUTROPHILS 5.6 thou/uL (1.6-8.1); HYPOCHROMASIA 1+; PLATELET ESTIMATE INCREASED
[2017-05-06 13:02] LABS: ANISOCYTOSIS 2+; OVALOCYTES 1+; POIKILOCYTOSIS 1+; POLYCHROMASIA 1+; TEARDROPS Occasional
[2017-05-06 13:04] LABS: ALBUMIN 2.9 g/dL (3.4-5.0); TOTAL BILIRUBIN 1.9 mg/dL (<0.1-1.0); TOTAL PROTEIN 8.4 g/dL (6.4-8.2)
[2017-05-06] MEDS ORDERED: ZOFRAN ODT4 MG SUBLING (13:32)
[2017-05-06 13:49] VITALS: BP 100/61
== END 2017-05-06 13:49 | disposition home or self-care (01) ==
LOC: M.ERS 11:51
PROVIDERS: Family Medicine
DX: R11.2 Nausea with vomiting, unspecified (principal); I10 Essential (primary) hypertension; I48.91 Unspecified atrial fibrillation; Z86.19 Personal history of other infectious and parasitic diseases

== ENCOUNTER 2018-12-14 21:26 | Emergency (ER) | payer MEDICARE, OTHER ==
[~2018-12-14] VITALS: Ht 188 cm; Wt 102.1 kg
[~2018-12-14 21:26] MED LIST changes: +XIFAXAN550 MG PO; +ZOFRAN ODT4 MG SUBLING
[2018-12-14] MEDS ORDERED: POTASSIUM (21:42)
[2018-12-14] MEDS ORDERED: NORCO 5-325 TA1 EAC1 PO (22:34)
[2018-12-14 23:04] VITALS: BP 117/71
== END 2018-12-14 23:07 | disposition home or self-care (01) ==
LOC: M.ERS 21:26
DX: S62.632A Displaced fracture of distal phalanx of right middle finger, initial encounter for closed fracture (principal); S61.312A Laceration without foreign body of right middle finger with damage to nail, initial encounter; I10 Essential (primary) hypertension; I48.91 Unspecified atrial fibrillation; W23.0XXA Caught, crushed, jammed, or pinched between moving objects, initial encounter; Y92.89 Other specified places as the place of occurrence of the external cause; Y93.75 Activity, martial arts; Y99.8 Other external cause status

== ENCOUNTER → 2019-12-26 | Day surgery (SDC) | payer MEDICARE, OTHER ==
[~2019-12-26] MED LIST changes: +BIOTIN10000 MC1 PO; +FIBERCON625 M1 PO; +NORCO 5-325 TA1 EAC1 PO; +ONE DAILY FOR1 EAC2 PO; +POTASSIUM GLUCONATE PO; +PROBIOTIC1 EAC6 PO
--- NOTE | ~2019-12-26 | PROC ---
[facility] [address] [place] [address] PROCEDURE REPORT Name: PORTIA GARG Room: [facility]#: [id number] Admission: 12/26/19 Attend Phys: Moiz Mcdonald DO Discharge: Date of : 54 Report #: [id number] THIS REPORT FOR: //name// cc: Werner Ribeiro Russell J. DO ~ THIS REPORT FOR: //name// For GI report, please see the Provation report in Perceptive 7 content. By: [id number] Records Staff LILA /SUSAN
[2019-12-26 10:29] LABS: HEMOGLOBIN 14.9 gm/dL (14.0-18.0); MCH 33.6 pg (26.0-34.0); MCHC 34.6 g/dL (28.0-37.0); MCV 97.1 fL (80.0-100.0); MPV 9.1 fl. (7.2-11.1); RBC 4.42 mil/uL (4.50-6.00); WBC 5.2 thou/uL (4.0-11.0)
[2019-12-26 10:39] LABS: CALCIUM 8.8 mg/dL (8.5-10.1); CREATININE 0.9 mg/dL (0.6-1.3)
[2019-12-26 10:42] LABS: INR 1.1; PROTIME 11.7 Seconds (9.20-11.50)
[2019-12-26 10:46] LABS: ALBUMIN 3.3 g/dL (3.4-5.0); TOTAL BILIRUBIN 1.6 mg/dL (<0.1-1.0); TOTAL PROTEIN 7.7 g/dL (6.4-8.2)
--- NOTE | 2019-12-30 12:06 | PATH ---
[facility] [address] [place] [address] PATHOLOGY RPT PROCEDURE Name: PORTIA MORENO Room: [facility].#: [id number] Admission: 12/26/19 Date of : 54 Discharge: Report #: [id number] Path Case #: [id number] [facility] Accession Number: [id number] . 01 Material submitted: . PART A: cecum - CECAL POLYP PART B: colon - PROXIMAL ASCENDING COLON POLYP. Modifiers: proximal, ascending PART C: colon - MID-ASCENDING COLON POLYP. Modifiers: mid, ascending PART D: rectum - RECTAL POLYPS X2 . 01 Clinical history: . SCREENING, PERSONAL HX OF POLYPS . 02 Diagnosis: A. Cecal polyp: - Tubular adenoma, negative for high-grade dysplasia. . B. Proximal ascending colon polyp: - Tubular adenoma, negative for high-grade dysplasia. . C. Mid ascending colon polyp: - Tubular adenoma, negative for high-grade dysplasia. . D. Rectal polyp x2: - Two hyperplastic polyps. . (SHERITA:andry; 12/30/2019) MBR 12/30/2019 1029 Local . 02 Electronically signed: . Edwin Tavarez MD, Pathologist NPI- [id number] . 01 Gross description: . A. The specimen is received in formalin, labeled "Portia Moreno, cecal polyp" and consists of 2 fragments of pink-torres tissue measuring 0.2 x 0.1 cm and 0.6 x 0.5 cm which are entirely submitted in A1. . B. The specimen is received in formalin, labeled "Portia Moreno, proximal ascending polyp" and consists of a fragment of torres tissue measuring 0.3 x 0.2 cm which is entirely submitted in B1. . C. The specimen is received in formalin, labeled "Portia Moreno, mid ascending colon polyp" and consists of a polypoid segment of torres-brown tissue measuring 0.7 x 0.7 x 0.5 cm. The margin is inked black. It is bisected and entirely submitted [place] [address] PATHOLOGY RPT PROCEDURE Name: PORTIA MORENO Kirill Room: [facility]#: [id number] Admission: 12/26/19 Date of : 54 Discharge: Report #: [id number] Path Case #: [id number] D. The specimen is received in formalin, labeled "Tiffanie, Portia, rectal polyp x2" and consists of 2 fragments of pink-torres tissue measuring 0.3 x 0.4 cm and 0.4 x 0.3 cm which are entirely submitted in D1. (SDY; 12/27/2019) SYU/SYU 12/27/2019 1402 Local . 02 Pathologist provided ICD-10: D12.0, D12.2, K62.1 . 02 CPT . 627047, 456081, 306368, 208069 Specimen Comment: A courtesy copy of this report has been sent to [phone] Specimen Comment: [id number] Specimen Comment: Report sent to / DR MURILLO Performed at: [address], [place] [id number] MD Werner Becker MD Phone: [phone] Performed at: 02 [facility] [address], [place], [place] [id number] MD Edwin Tavarez MD Phone: [phone]
== END | disposition home or self-care (01) ==
LOC: M.SUR 09:41
PROVIDERS: ATTEND Internal Medicine Gastroenterology
DX: Z12.11 Encounter for screening for malignant neoplasm of colon (principal); K64.4 Residual hemorrhoidal skin tags; D12.2 Benign neoplasm of ascending colon; D12.0 Benign neoplasm of cecum; K57.30 Diverticulosis of large intestine without perforation or abscess without bleeding; K63.89 Other specified diseases of intestine; K74.60 Unspecified cirrhosis of liver; I48.91 Unspecified atrial fibrillation; Z79.899 Other long term (current) drug therapy; Z98.890 Other specified postprocedural states

== ENCOUNTER 2020-03-31 05:51 | Emergency (ER) | payer MEDICARE, OTHER ==
[~2020-03-31] VITALS: Ht 188 cm; Wt 99.8 kg
[2020-03-31 06:07] LABS: ABSOLUTE EOSINOPHILS 0.3 thou/uL (0.0-0.7); ABSOLUTE LYMPHOCYTES 1.2 thou/uL (0.8-5.3); ABSOLUTE MONOCYTES 0.6 thou/uL (0.0-1.2); ABSOLUTE NEUTROPHILS 3.8 thou/uL (1.6-8.1); BASOPHILS 0.6 %; EOSINOPHILS 4.7 %; HEMATOCRIT 42.6 % (42.0-52.0); HEMOGLOBIN 14.9 gm/dL (14.0-18.0); LYMPHOCYTES 19.8 %; MCH 32.6 pg (26.0-34.0); MCV 93.1 fL (80.0-100.0); MONOCYTES 9.8 %; MPV 8.5 fl. (7.2-11.1); NUCLEATED RBCS 0 /100WBC; POLYS 65.1 %; RBC 4.57 mil/uL (4.50-6.00); WBC 5.9 thou/uL (4.0-11.0)
[2020-03-31] MEDS ORDERED: LISINOPRIL20 MG PO (06:07)
[2020-03-31] MEDS ORDERED: CABOMETYX20 MG PO (06:08)
[2020-03-31 06:17] LABS: CALCIUM 8.7 mg/dL (8.5-10.1); CREATININE 0.9 mg/dL (0.6-1.3); POTASSIUM 3.7 mmol/L (3.5-5.1)
[2020-03-31 06:18] LABS: APTT 25.5 Seconds (25.0-31.3); INR 1.1; PROTIME 11.6 Seconds (9.20-11.50)
[2020-03-31 06:27] LABS: ALBUMIN 3.1 g/dL (3.4-5.0); TOTAL BILIRUBIN 1.2 mg/dL (<0.1-1.0); TOTAL PROTEIN 8.3 g/dL (6.4-8.2)
[2020-03-31 06:41] LABS: PLATELET COUNT* 54 thou/uL (150-400)
[2020-03-31] MEDS ORDERED: PRINIVIL20 MG PO (07:11)
[2020-03-31] MEDS ORDERED: CABOMETYX40 MG PO (07:14)
[2020-03-31] MEDS ORDERED: [UNRECOGNIZED DRUG - OTHER] (07:15)
--- NOTE | 2020-03-31 11:29 | EXE ---
[place] [address] STRESS ECHOCARDIOGRAM Name: PORTIA GARG Room: [facility]#: [id number] Admission: 03/31/20 Attend Phys: Discharge: Date of : 54 Date of Service: 03/31/20 1129 Report #: [id number] THIS REPORT FOR: cc: Werner Ribeiro Russell J. DO Liston, Michael J. MD [facility] ~ APPROVED REPORT Study performed: 03/31/2020 10:32:31 Exam: Stress Echocardiogram Indication: AFIB HX, NAUSEA, Chest pain Patient Location: ER Stress Nurse: Betzy Mills RN Supervising Physician: Mainor Dalton MD Status: routine Ht: 5 ft 4 in Medical History Medical History: Atrial Fibrillation, liver cancer Medications: Propranolol, Lisinopril Allergies: No known drug allergies Cardiac Risk Factors: Tobacco History (Current/Recent), HTN, FHX of CAD Procedure The patient underwent an Exercise Stress Test using the Kevin Protocol. Blood pressure, heart rate, and EKG were monitored. An Echocardiogram was performed by bioinformatics technician in four stages in quad fashion. At peak stress, four selected images were obtained and placed side by side with resting images for comparison. Stress Test Details Stress Test: Exercise stress testing was performed using a Kevin protocol. HR Resting HR: 68 bpm Max Heart Rate (APMHR): 153 bpm Max HR Achieved: 150 bpm Target HR (85% APMHR): 130 bpm % of APMHR: 98 Recovery HR: 88 bpm HR response to stress: Normal [place] [address] STRESS ECHOCARDIOGRAM Name: BRITANYPORTIA R Room: [facility]#: [id number] Admission: 03/31/20 Attend Phys: Discharge: Date of : 54 Date of Service: 03/31/20 1129 Report #: [id number] Resting BP: 126/107 mmHg Max BP: 178/83 mmHg Recovery BP: 152/106 mmHg BP response to stress: Baseline HTN ECG Resting ECG: Sinus Rhythm Stress ECG: Sinus Tachycardia ST Change: None Arrhythmia: VPC's Recovery ECG: Sinus Rhythm Recovery ST Change: None Recovery Arrhythmia: VPC's Clinical Reason for Termination: Maximal effort, Completed protocol Exercise duration: 7 min 6 sec Highest Stage Achieved: Stage 3: 3.4 mph at 14% grade. Exercise capacity: 8.6 METs The patient tolerated standard protocol exercise without significant cardiac symptoms. The patient exhibited good exercise tolerance. Stress ECG Conclusion The baseline twelve-lead EKG shows sinus rhythm without significant ST segment or T wave abnormality. EKGs obtained during and post exercise show sinus rhythm and sinus tachycardia with no significant ST segment changes when compared to baseline. There were occasional unifocal premature ventricular contractions noted. No other significant arrhythmias noted. Pre-Stress Echo The resting Echocardiogram showed normal left ventricular contractility with an estimated Ejection Fraction of about 55-60%. The resting echocardiogram demonstrated normal wall motion in all wall segments. Post-Stress Echo The stress Echocardiogram showed normal left ventricular contractility with an estimated Ejection Fraction of about >70%. Compared to rest, there were no stress-induced wall motion abnormalities. Clinical No clinical or ECG evidence [place] [address] STRESS ECHOCARDIOGRAM Name: GILDA GARGJonas Roy Room: [facility]#: [id number] Admission: 03/31/20 Attend Phys: Discharge: Date of : 54 Date of Service: 03/31/20 1129 Report #: [id number] Clinical Response: Non-ischemic Exercise Capacity: Average Stress ECG Response: Non-ischemic Stress Echo Images: Non-ischemic Other Information Study Quality: Good <ELECTRONICALLY SIGNED> By: Mainor Dalton MD, FACC 03/31/201128 28 28 Mainor Dalton MD, FACC /INF
[2020-03-31 11:52] VITALS: BP 125/90
--- NOTE | 2020-03-31 14:08 | EKG ---
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1950 Requested By: Nubia Farrell Order Number: [id number] MD: Mainor Dalton Measurements Intervals [place] Rate: 70 P: 42 ID: [id number] QRS: -34 QRSD: 102 T: 34 QT: 378 QTc: 408 Interpretive Statements Sinus rhythm Left axis deviation Low voltage, precordial leads 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
== END 2020-03-31 11:53 | disposition home or self-care (01) ==
LOC: M.ERS 05:51
PROVIDERS: Personal Emergency Response Attendant
DX: R07.89 Other chest pain (principal); I10 Essential (primary) hypertension; I48.91 Unspecified atrial fibrillation; Z79.899 Other long term (current) drug therapy; Z20.828 Contact with and (suspected) exposure to other viral communicable diseases

== ENCOUNTER 2020-04-06 22:23 | Emergency (ER) | payer MEDICARE, OTHER ==
[~2020-04-06] VITALS: Ht 188 cm; Wt 97.1 kg
[~2020-04-06 22:23] MED LIST changes: +CABOMETYX20 MG PO; +CABOMETYX40 MG PO; +LISINOPRIL20 MG PO; +PRINIVIL20 MG PO; +[UNRECOGNIZED DRUG - OTHER]
[2020-04-06 22:33] VITALS: BP 89/36
[2020-04-06 23:16] LABS: ABSOLUTE BASOPHILS 0.1 thou/uL (0.0-0.2); ABSOLUTE EOSINOPHILS 0.3 thou/uL (0.0-0.7); ABSOLUTE LYMPHOCYTES 0.9 thou/uL (0.8-5.3); ABSOLUTE MONOCYTES 0.3 thou/uL (0.0-1.2); ABSOLUTE NEUTROPHILS 5.2 thou/uL (1.6-8.1); BASOPHILS 0.8 %; EOSINOPHILS 4.2 %; HEMATOCRIT 44.1 % (42.0-52.0); HEMOGLOBIN 15.4 gm/dL (14.0-18.0); LYMPHOCYTES 13.9 %; MCH 32.8 pg (26.0-34.0); MCHC 34.9 g/dL (28.0-37.0); MCV 93.9 fL (80.0-100.0); MONOCYTES 5.1 %; MPV 8.6 fl. (7.2-11.1); NUCLEATED RBCS 0 /100WBC; PLATELET COUNT* 76 thou/uL (150-400); RDW-CV 19.3 % (10.5-14.5); WBC 6.8 thou/uL (4.0-11.0)
[2020-04-06 23:31] LABS: APTT 22.9 Seconds (25.0-31.3); INR 1.1; PROTIME 11.7 Seconds (9.20-11.50)
[2020-04-06 23:36] LABS: CALCIUM 8.5 mg/dL (8.5-10.1); CREATININE 1.3 mg/dL (0.6-1.3); POTASSIUM 3.3 mmol/L (3.5-5.1)
[2020-04-06 23:41] LABS: ALBUMIN 2.9 g/dL (3.4-5.0); TOTAL BILIRUBIN 3.1 mg/dL (<0.1-1.0); TOTAL PROTEIN 7.3 g/dL (6.4-8.2)
--- NOTE | 2020-04-07 06:36 | NUR ---
DISCUSSED WITH THE PT THE EGD THAT WAS SCHEDULED TODAY IN SURGERY; PT VERBALIZED UNDERSTANDING; CURRENTLY WAITING FOR BED PLACEMENT AT [facility]; PT PAIN IMPROVED RATES /10; MONITOR TRACING SR; CALL LIGHT WITHIN REACH WILL CONTINUE TO MONITOR
[2020-04-07 06:51] LABS: HEMATOCRIT 43.6 % (42.0-52.0)
[2020-04-07 12:01] LABS: URINE BILIRUBIN 2+ (Negative); URINE BLOOD NEGATIVE (Negative); URINE CLARITY CLEAR; URINE COLOR DARK YELLOW; URINE GLUCOSE-RANDOM NEGATIVE (Negative); URINE KETONES NEGATIVE (Negative); URINE LEUKOCYTES-REFLEX NEGATIVE (Negative); URINE NITRITE-REFLEX POSITIVE (Negative); URINE PROTEIN TRACE (Negative); URINE SPECIFIC GRAVITY <= 1.005 (1.005-1.030)
[2020-04-07 12:02] LABS: ICTOTEST (BILI CONFIRMATORY) Positive (Negative)
[2020-04-07 12:05] LABS: SQUAMOUS 0-3 Few /LPF (0-3); URINE RBC None Seen /HPF (0-2); URINE WBC-REFLEX 0-5 Rare /HPF (0-5)
[2020-04-07 12:06] LABS: BACTERIA-REFLEX 1-9 Few /HPF (None Seen); CASTS None Seen /LPF (None Seen); CRYSTALS None Seen /LPF (None Seen); MUCUS 0-3 Light strn/LPF (None Seen)
[2020-04-07 12:08] LABS: AMP/METHAMP Negative (Negative); BARBITURATES Negative (Negative); BENZODIAZEPINES Negative (Negative); COCAINE Negative (Negative); METHADONE Negative (Negative); OPIATES POSITIVE (Negative); PCP Negative (Negative); THC Negative (Negative)
[2020-04-07 14:56] VITALS: BP 127/84
--- NOTE | 2020-04-07 16:15 | EKG ---
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1950 Requested By: Nubia Farrell Order Number: [id number] MD: Juice Hopkins Measurements Intervals [place] Rate: 69 P: 23 DC: 198 QRS: -28 QRSD: 110 T: 69 QT: 419 QTc: 449 Interpretive Statements Sinus rhythm Borderline left axis deviation Possible inferior scar Low voltage, precordial leads Borderline T abnormalities, anterior leads Compared to ECG 03/31/2020 05:56:28 T-wave abnormality now present Myocardial infarct finding persists Electronically Signed On 04-07-2020 16:15:47 DRAPERY OPERATOR by Juice Hopkins [email or web address] <ELECTRONICALLY SIGNED> By: Juice Hopkins MD, FAC 04/07/20 1615 10 231 Juice Hopkins MD, [facility] /EPI
== END 2020-04-07 14:59 | disposition short-term general hospital (02) ==
LOC: M.ERS 22:23 → M.TBA-ER 04-07 13:49 → M.ERS 04-07 13:49
PROVIDERS: Personal Emergency Response Attendant
DX: I95.9 Hypotension, unspecified (principal); R55 Syncope and collapse; E80.6 Other disorders of bilirubin metabolism; R10.13 Epigastric pain; R10.12 Left upper quadrant pain; Z20.828 Contact with and (suspected) exposure to other viral communicable diseases; I10 Essential (primary) hypertension; I48.91 Unspecified atrial fibrillation; Z86.19 Personal history of other infectious and parasitic diseases